=== PATIENT | female | born 1935 | race Caucasian/White ===

== ENCOUNTER → 2016-11-30 | Outpatient (CLI) | payer MEDICARE | END | disposition home or self-care (01) | LOC: CFH 13:50 | PROVIDERS: ATTEND Family Medicine | DX: M51.26 Other intervertebral disc displacement, lumbar region (principal); M43.17 Spondylolisthesis, lumbosacral region; M47.896 Other spondylosis, lumbar region; M48.07 Spinal stenosis, lumbosacral region | CPT/HCPCS: 72148 ==

== ENCOUNTER 2017-04-23 06:27 | Emergency (ER) | payer MEDICARE ==
[~2017-04-23] VITALS: Ht 157.5 cm; Wt 61.8 kg
[2017-04-23] MEDS ORDERED: SODIUM CHLORIDE FLUSH 10ML SYR IVF ONE (07:30)
[2017-04-23 07:41] LABS: BASOPHILS # (AUTO) 0.02 x10^3/uL (0-0.1); BASOPHILS % (AUTO) 0 % (0-1); EOSINOPHILS # (AUTO) 0.14 x10^3/uL (0-0.4); EOSINOPHILS % (AUTO) 2 % (1-7); LYMPHOCYTES # (AUTO) 1.84 x10^3/uL (1-3.4); LYMPHOCYTES % (AUTO) 29 % (22-44); MD NO; MEAN CORPUSCULAR HEMOGLOBIN 21.9 pg (27.0-34.8); MEAN CORPUSCULAR HGB CONC 31.2 g/dL (32.4-35.8); MEAN CORPUSCULAR VOLUME 70.3 fL (80-100); MEAN PLATELET VOLUME 6.6 fL (7.4-10.4); MONOCYTES # (AUTO) 0.48 x10^3/uL (0.2-0.8); MONOCYTES % (AUTO) 8 % (2-9); NEUTROPHILS # (AUTO) 3.81 x10^3/uL (1.8-6.8); NEUTROPHILS % (AUTO) 61 % (42-75); PLATELET COUNT 317 x10^3/uL (130-400); RED BLOOD COUNT 4.28 x10^6/uL (3.82-5.3); RED CELL DISTRIBUTION WIDTH 17.9 % (9.6-15.2)
[2017-04-23 07:47] LABS: CULTURE INDICATED? NO; MICROSCOPIC NOT IND
[2017-04-23 07:53] LABS: ALANINE AMINOTRANSFERASE 13 U/L (12-78); ALBUMIN 3.6 g/dL (3.4-5.0); ANION GAP 8 mmol/L (5-15); CALCIUM 8.8 mg/dL (8.5-10.1); CHLORIDE 107 mmol/L (98-107); CREATININE 0.72 mg/dL (0.55-1.02)
[2017-04-23 07:55] LABS: ALKALINE PHOSPHATASE 80 U/L (45-117); BILIRUBIN,TOTAL 0.3 mg/dL (0.2-1.0); TOTAL PROTEIN 7.3 g/dL (6.4-8.2)
[2017-04-23 09:58] VITALS: BP 164/78
== END 2017-04-23 10:20 | disposition home or self-care (01) ==
LOC: ED 07:25
DX: N39.3 Stress incontinence (female) (male) (principal); D53.9 Nutritional anemia, unspecified; Z87.891 Personal history of nicotine dependence
CPT/HCPCS: 36415; 80053; 81003; 83690; 85025; 99284

== ENCOUNTER 2017-04-27 07:21 | Emergency (ER) | payer MEDICARE ==
[~2017-04-27] VITALS: Ht 157.5 cm; Wt 60.6 kg
[2017-04-27 07:22] VITALS: BP 159/62
[2017-04-27] MEDS ORDERED: SODIUM CHLORIDE 0.9% 1,000 ML IV ONE (08:07)
[2017-04-27] MEDS ORDERED: SODIUM CHLORIDE 0.9% 1,000ML IVBOLUS ONE (08:30)
[2017-04-27] MEDS ORDERED: SODIUM CHLORIDE FLUSH 10ML SYR IVF ONE (08:30)
[2017-04-27 08:46] LABS: BASOPHILS # (AUTO) 0.03 x10^3/uL (0-0.1); BASOPHILS % (AUTO) 1 % (0-1); EOSINOPHILS # (AUTO) 0.06 x10^3/uL (0-0.4); EOSINOPHILS % (AUTO) 1 % (1-7); LYMPHOCYTES # (AUTO) 1.34 x10^3/uL (1-3.4); LYMPHOCYTES % (AUTO) 24 % (22-44); MD NO; MEAN CORPUSCULAR HEMOGLOBIN 22.2 pg (27.0-34.8); MEAN CORPUSCULAR VOLUME 71.5 fL (80-100); MONOCYTES # (AUTO) 0.49 x10^3/uL (0.2-0.8); MONOCYTES % (AUTO) 9 % (2-9); NEUTROPHILS # (AUTO) 3.64 x10^3/uL (1.8-6.8); NEUTROPHILS % (AUTO) 65 % (42-75); PLATELET COUNT 294 x10^3/uL (130-400); RED BLOOD COUNT 3.97 x10^6/uL (3.82-5.3); RED CELL DISTRIBUTION WIDTH 17.7 % (9.6-15.2)
[2017-04-27 08:59] LABS: ALANINE AMINOTRANSFERASE 14 U/L (12-78); ALBUMIN 3.4 g/dL (3.4-5.0); ANION GAP 7 mmol/L (5-15); CALCIUM 8.8 mg/dL (8.5-10.1); CHLORIDE 105 mmol/L (98-107); CREATININE 0.65 mg/dL (0.55-1.02)
[2017-04-27 09:02] LABS: ALKALINE PHOSPHATASE 73 U/L (45-117); BILIRUBIN,TOTAL 0.3 mg/dL (0.2-1.0); TOTAL PROTEIN 6.9 g/dL (6.4-8.2)
[2017-04-27] MEDS ORDERED: OMNIPAQUE 350 MG/ML, 100ML BOTTLE ONE (09:34)
== END 2017-04-27 11:15 | disposition home or self-care (01) ==
LOC: ED 08:15
DX: N83.202 Unspecified ovarian cyst, left side (principal); N83.201 Unspecified ovarian cyst, right side; G89.29 Other chronic pain; R10.84 Generalized abdominal pain; Z85.43 Personal history of malignant neoplasm of ovary; Z87.891 Personal history of nicotine dependence
CPT/HCPCS: 36415; 74177; 80053; 83690; 85025; 93005; 96360; 99285; J7030; Q9967

== ENCOUNTER → 2018-01-25 | Outpatient (CLI) | payer MEDICARE | END | disposition home or self-care (01) | LOC: CFH 09:40 | PROVIDERS: ATTEND Internal Medicine | DX: J84.9 Interstitial pulmonary disease, unspecified (principal); K44.9 Diaphragmatic hernia without obstruction or gangrene; I25.10 Atherosclerotic heart disease of native coronary artery without angina pectoris | CPT/HCPCS: 71250 ==

== ENCOUNTER 2018-04-23 17:25 | Observation (INO) | payer MEDICARE ==
[~2018-04-23] VITALS: Ht 157.5 cm; Wt 51.3 kg
--- NOTE | 2018-04-23 17:40 | NUR ---
JAVAN TYSON FROM MORNING STAR W/ CO BY FAMILY/STAFF OF INCREASING CONFUSION. DENIES PHYSICAL CO. HX OF DEMENTIA. PT NOW A&OX2, SELF AND PURPOSE. UNABLE TO REPORT DATE/LOCATION, "I DON'T KEEP UP WITH THAT STUFF. I THINK WE'RE IN [place]". PT FOLLOWS COMMANDS. FACE SYMMETRICAL, SPEECH CLEAR; +STRENGTH X 4. DENIES CP/SOB/N/V/D/FEVER/PRODUCTIVE COUGH/RECENT FALL OR TRAUMA. PER MARBELLA, PT REQUIRES 3L O2 BY NC, FOUND ON RA 93% BP/SPO2 MONITORING IN PLACE. ERP AT BEDSIDE FOR INITIAL ASSESSMENT
--- NOTE | 2018-04-23 18:05 | NUR ---
DENNIS LAZO COMPLETED AND WALKED TO LAB
[2018-04-23 18:06] LABS: MEAN CORPUSCULAR HEMOGLOBIN 26.3 pg (27.0-34.8); MEAN CORPUSCULAR HGB CONC 32.7 g/dL (32.4-35.8); MEAN CORPUSCULAR VOLUME 80.3 fL (80-100); MEAN PLATELET VOLUME 7.6 fL (7.4-10.4); PLATELET COUNT 224 x10^3/uL (130-400); RED BLOOD COUNT 4.71 x10^6/uL (3.82-5.3); RED CELL DISTRIBUTION WIDTH 20.8 % (9.6-15.2)
[2018-04-23 18:10] LABS: ALANINE AMINOTRANSFERASE 24 U/L (12-78); ALBUMIN 3.6 g/dL (3.4-5.0); ANION GAP 7 mmol/L (5-15); CALCIUM 9.3 mg/dL (8.5-10.1); CHLORIDE 109 mmol/L (98-107); CREATININE 0.75 mg/dL (0.55-1.02)
[2018-04-23 18:12] LABS: ALKALINE PHOSPHATASE 69 U/L (45-117); BILIRUBIN,TOTAL 0.3 mg/dL (0.2-1.0); TOTAL PROTEIN 7.1 g/dL (6.4-8.2)
[2018-04-23 18:16] LABS: MICROSCOPIC NOT IND
[2018-04-23 18:18] LABS: CULTURE INDICATED? NO
[2018-04-23 18:20] LABS: MD YES
[2018-04-23 18:22] LABS: ANISOCYTOSIS 1+; EOS#(MANUAL) 0.11 x10^3/uL (0.0-0.4); EOS% (MANUAL) 2 % (1-7); LYMPH#(MANUAL) 1.75 x10^3/uL (1-3.4); LYMPHS% (MANUAL) 33 % (22-44); MONOS#(MANUAL) 0.58 x10^3/uL (0.3-2.7); MONOS% (MANUAL) 11 % (2-9); REACTIVE LYMPHS # (MANUAL) 0.05 x10^3/uL (0-0); REACTIVE LYMPHS % (MANUAL) 1 % (0-0); SEG#(MANUAL) 2.81 x10^3/uL (1.8-6.8); SEGS% (MANUAL) 53 % (42-75)
[2018-04-23 18:23] LABS: <PLATELET ESTIMATE> ADEQUATE; <PLT MORPHOLOGY> NORMAL PLT MORPH; OVALOCYTES 1+
[2018-04-23] MEDS ORDERED: OXYBUTYNIN CHLORIDE PO (18:45)
[2018-04-23] MEDS ORDERED: OMEPRAZOLE PO (18:45)
[2018-04-23] MEDS ORDERED: LEVOTHYROXINE PO (18:45)
--- NOTE | 2018-04-23 18:51 | NUR ---
REPORT TO CHIQUI FARRELL
--- NOTE | 2018-04-23 18:53 | NUR ---
REPORT RECEIVED FROM CHIQUI MCGILL. PT TO CT
[2018-04-23] MEDS ORDERED: OMNIPAQUE 350 MG/ML, 100ML BOTTLE ONE (19:00)
[2018-04-23 20:12] VITALS: BP 154/84
[2018-04-23] MEDS ORDERED: ONDANSETRON ODT 4 MG PO PRN (21:00)
[2018-04-23] MEDS ORDERED: DOCUSATE 100 MG CAPSULE PO PRN (21:00)
[2018-04-23] MEDS ORDERED: hydrALAzine 20 MG/ML, 1ML IVPush PRN (21:00)
[2018-04-23] MEDS: ENOXAPARIN 40 MG/0.4 ML SQ SCH (23:09)
[2018-04-24 03:16] VITALS: BP 97/59
[2018-04-24 06:30] VITALS: BP 92/67
[2018-04-24] MEDS: OXYBUTYNIN CHLORIDE 5 MG TABLET PO SCH ×2 (10:30→21:36)
[2018-04-24] MEDS ORDERED: OXYB5TAB7 PO (10:32)
[2018-04-24] MEDS ORDERED: LEVO125T5 PO (10:32)
[2018-04-24] MEDS ORDERED: OMEP-110 PO (10:32)
[2018-04-24] MEDS: OMEPRAZOLE 20 MG CAPSULE.DR PO SCH (11:00)
[2018-04-24] MEDS: SODIUM CHLORIDE 0.9% 1,000 ML IV SCH (11:30)
[2018-04-24 12:06] VITALS: BP 132/66
[2018-04-24 19:41] VITALS: BP 112/54
[2018-04-24] MEDS: ENOXAPARIN 40 MG/0.4 ML SQ SCH (21:36)
[2018-04-25 01:40] VITALS: BP 108/58
[2018-04-25] MEDS: SODIUM CHLORIDE 0.9% 1,000 ML IV SCH ×2 (02:55→14:10)
[2018-04-25] MEDS ORDERED: LEVOTHYROXINE 125 MCG TABLET PO SCH (06:00)
[2018-04-25 08:22] VITALS: BP 121/58
[2018-04-25] MEDS: OMEPRAZOLE 20 MG CAPSULE.DR PO SCH (09:20)
[2018-04-25] MEDS: OXYBUTYNIN CHLORIDE 5 MG TABLET PO SCH ×2 (09:20→19:37)
[2018-04-25 14:23] VITALS: BP 145/75
[2018-04-25] MEDS: ACETAMINOPHEN 325 MG TABLET PO PRN (19:37)
[2018-04-25] MEDS: ENOXAPARIN 40 MG/0.4 ML SQ SCH (19:37)
[2018-04-25 19:45] VITALS: BP 131/63
[2018-04-26 01:51] VITALS: BP 121/66
[2018-04-26] MEDS: SODIUM CHLORIDE 0.9% 1,000 ML IV SCH ×2 (03:30→14:19)
[2018-04-26] MEDS: OMEPRAZOLE 20 MG CAPSULE.DR PO SCH (07:31)
[2018-04-26] MEDS: OXYBUTYNIN CHLORIDE 5 MG TABLET PO SCH ×2 (07:31→20:02)
[2018-04-26 08:35] VITALS: BP 102/66
[2018-04-26] MEDS: ACETAMINOPHEN 325 MG TABLET PO PRN ×3 (10:02→20:02)
[2018-04-26 14:35] VITALS: BP 105/69
[2018-04-26] MEDS: ENOXAPARIN 40 MG/0.4 ML SQ SCH (20:02)
[2018-04-26 20:07] VITALS: BP 152/73
[2018-04-27 03:06] VITALS: BP 116/56
[2018-04-27] MEDS: LEVOTHYROXINE 100 MCG TABLET PO SCH (05:15)
[2018-04-27] MEDS ORDERED: ONDANSETRON ODT 4 MG PO PRN (07:00)
[2018-04-27 08:03] VITALS: BP 123/66
[2018-04-27] MEDS: OXYBUTYNIN CHLORIDE 5 MG TABLET PO SCH ×2 (08:19→20:59)
[2018-04-27] MEDS: OMEPRAZOLE 20 MG CAPSULE.DR PO SCH (08:19)
[2018-04-27] MEDS: ACETAMINOPHEN 325 MG TABLET PO PRN ×3 (11:53→20:59)
[2018-04-27 13:30] VITALS: BP 93/50
[2018-04-27 18:35] VITALS: BP 101/43
[2018-04-27] MEDS: ENOXAPARIN 40 MG/0.4 ML SQ SCH (23:08)
[2018-04-28 01:37] VITALS: BP 150/71
[2018-04-28] MEDS: ACETAMINOPHEN 325 MG TABLET PO PRN (05:02)
[2018-04-28] MEDS: LEVOTHYROXINE 100 MCG TABLET PO SCH (05:02)
[2018-04-28 06:46] VITALS: BP 107/58
[2018-04-28] MEDS: OMEPRAZOLE 20 MG CAPSULE.DR PO SCH (08:48)
[2018-04-28] MEDS: OXYBUTYNIN CHLORIDE 5 MG TABLET PO SCH (08:48)
[2018-04-28] MEDS ORDERED: LEVO100T PO (10:53)
== END 2018-04-28 10:45 | disposition home or self-care (01) ==
LOC: ED 19:06 → INTOOBSV 19:11 → EDIP 19:11 → 4NOR 19:28
PROVIDERS: ADMIT Internal Medicine; ATTEND Internal Medicine
DX: G93.41 Metabolic encephalopathy (principal); E03.9 Hypothyroidism, unspecified; E11.9 Type 2 diabetes mellitus without complications; E86.0 Dehydration; F03.90 Unspecified dementia, unspecified severity, without behavioral disturbance, psychotic disturbance, mood disturbance, and anxiety; I25.2 Old myocardial infarction; N32.81 Overactive bladder; J96.10 Chronic respiratory failure, unspecified whether with hypoxia or hypercapnia; J44.9 Chronic obstructive pulmonary disease, unspecified; J90 Pleural effusion, not elsewhere classified; K21.9 Gastro-esophageal reflux disease without esophagitis; Z80.0 Family history of malignant neoplasm of digestive organs; Z85.118 Personal history of other malignant neoplasm of bronchus and lung; Z87.891 Personal history of nicotine dependence; Z99.81 Dependence on supplemental oxygen
CPT/HCPCS: 36415; 70450; 71045; 71260; 80053; 81003; 82607; 84439; 84443; 85025; 86480; 92522; 96372; 97162; 97166; 99284; G0378; G8978; G8979; G8980; J1650; J7030; Q9967; 99285